=== PATIENT | male | born 1955 | race Caucasian/White ===

== ENCOUNTER 2022-04-07 14:10 | Emergency (ER) | payer SELFPAY ==
[2022-04-07 14:15] VITALS: BP 128/77; PULSE 89; RESP 16; TEMP 36.4; O2SAT 97
--- NOTE | 2022-04-07 14:32 | ED_ITS ---
HPI - General Adult General: Chief complaint: General Medical Stated complaint: out of meds Time Seen by Provider: 04/07/22 14:22 Source: patient Mode of arrival: ambulatory Limitations: no limitations History of Present Illness: 66-year-old male presents to the ER today for medication refills. Patient reports he is new to the area and does not have an appointment with a PCP until the . Patient reports he is out of his aripiprazole which he requires to maintain moods. Patient takes 2 mg at night. He reports he is been on this for years with no problems. He has no other concerns at this time. Review of Systems General: Reports: 10 or more systems reviewed and unremarkable except in HPI and below Physical Exam Const: COMMON NORMALS: no acute distress, average body habitus, patient oriented x3, no limitations, healthy appearing, alert and well nourished Resp: COMMON NORMALS: normal respiratory effort EFFORT & INSPECTION: Yes able to speak in complete sentences Cardio: COMMON NORMALS: regular rate and regular rhythm RATE: regular rate RHYTHM: regular rhythm Extremity: COMMON NORMALS: normal to inspection and full ROM Neuro: COMMON NORMALS: patient oriented x3 SENSORIUM/ORIENTATION: Yes alert Psych: COMMON NORMALS: mental status grossly normal, Normal thought process present and cooperative THOUGHT PROCESS: Normal thought process present Skin: COMMON NORMALS: no rashes or lesions noted GENERAL SKIN EXAM: no rashes or lesions noted Course ED course: 66-year-old male presents to the ER today for medication refills. Patient is new to the area and does not have an appointment with the PCP until the . He is on 2 mg of aripiprazole at night. He has been on this for years with no problems and does not want to go without a medicine for 2 weeks. Vital Signs: Vital signs: Vital Signs Temperature 97.5 F L 04/07/22 14:15 Pulse Rate 89 04/07/22 14:15 Respiratory Rate 16 04/07/22 14:15 Blood Pressure 128/77 04/07/22 14:15 Pulse Oximetry 97 04/07/22 14:15 Oxygen Delivery Me thod 04/07/22 14:15 MDM - General Adult Medical Decision Making 66-year-old male presents to the ER today for medication refills. Patient is new to the area and does not have an appointment with the PCP until the . He is on 2 mg of aripiprazole at night. He has been on this for years with no problems and does not want to go without a medicine for 2 weeks. We will refill patient's aripiprazole at this time. Keep appointment on the . Return to the ER with new or worsening symptoms. Patient verbalized understanding and is in agreement with the treatment plan. Critical Care Time Critical Care Time: Critical Care Time: No Discharge Plan Discharge Patient Disposition: Home Clinical Impression: Medication refill Condition: Stable Prescriptions: New aripiprazole 2 mg tablet 2 mg PO DAILY Qty: 21 0RF Discharge Orders: Discharge ED (Routine); Ordered 04/07/22 Ordered By: Nicole Alomnte Discharge Diet: Usual diet Discharge Activity: Resume usual activity Patient Instructions: Opioid Safety Activity Restrictions/Additional Instructions: Take medication as prescribed. Follow-up with PCP as scheduled appointment on the . Return to the ER with new or worsening symptoms. Coding Level of Care Code ED Toll Service Observer for Dao Allen
== END 2022-04-07 14:41 | disposition home or self-care (01) ==
PROVIDERS: Emergency Provider Physician Assistant
DX: Z76.0 Encounter for issue of repeat prescription (principal)
CPT/HCPCS: 99283

== ENCOUNTER → 2022-04-18 12:23 | Outpatient (BNVA) | payer SELFPAY | PROVIDERS: PCP Family Medicine; Visit Provider Family Medicine | DX: E11.9 Type 2 diabetes mellitus without complications (principal); I10 Essential (primary) hypertension; E78.00 Pure hypercholesterolemia, unspecified; I25.10 Atherosclerotic heart disease of native coronary artery without angina pectoris; F32.A Depression, unspecified; Z76.89 Persons encountering health services in other specified circumstances | CPT/HCPCS: 80053; 80061; 82043; 83036 ==

== ENCOUNTER → 2022-11-03 10:20 | Outpatient (BNVA) | payer OTHER, SELFPAY | PROVIDERS: PCP Family Medicine; Visit Provider Family Medicine | DX: E11.9 Type 2 diabetes mellitus without complications (principal); I10 Essential (primary) hypertension; E78.00 Pure hypercholesterolemia, unspecified; I25.10 Atherosclerotic heart disease of native coronary artery without angina pectoris | CPT/HCPCS: 80048; 80061; 83036 ==

== ENCOUNTER → 2023-02-12 09:51 | Outpatient (BNVA) | payer OTHER, SELFPAY | PROVIDERS: PCP Family Medicine; Visit Provider Family Medicine | DX: E11.9 Type 2 diabetes mellitus without complications (principal) | CPT/HCPCS: 80053; 80061; 83036 ==

== ENCOUNTER → 2023-05-16 12:28 | Outpatient (BNVA) | payer OTHER, SELFPAY | PROVIDERS: PCP Family Medicine; Visit Provider Family Medicine | DX: E11.9 Type 2 diabetes mellitus without complications (principal) | CPT/HCPCS: 80048; 83036 ==

== ENCOUNTER 2023-07-30 19:15 | Emergency (ER) | payer OTHER, SELFPAY ==
[2023-07-30 19:26] VITALS: BP 192/118; PULSE 127; RESP 17; TEMP 38.9; O2SAT 95; BMI 36.0
[2023-07-30 19:28] LABS: Glucose Point of Care 176 mg/dL (70-110)
--- NOTE | 2023-07-30 19:54 | CTR_ITS ---
PROCEDURE INFORMATION: Exam: CT Head Without Contrast Exam date and time: 07/30/2023 8:13 PM Age: 67 years old Clinical indication: Altered mental status/memory loss and fever; Patient HX: Fever with confusion; Additional info: Fever AMS TECHNIQUE: Imaging protocol: Computed tomography of the head without contrast. Radiation optimization: All CT scans at this facility use at least one of these dose optimization techniques: automated exposure control; mA and/or kV adjustment per patient size (includes targeted exams where dose is matched to clinical indication); or iterative reconstruction. REPORTING DATA: Count of CT and Cardiac NM exams in prior 12 months: This patient has received 0 known CTs and 0 known cardiac nuclear medicine studies in the 12 months prior to the current study. COMPARISON: No relevant prior studies available. RADIATION DOSE METRICS: Total DLP (mGy-cm): 1090.34 FINDINGS: Brain: No focal hemorrhage or midline shift is identified. The ventricles and parenchyma show mild atrophy and chronic bicerebral white matter ischemic change. Cerebral ventricles: No ventriculomegaly or evidence of hydrocephalus. Paranasal sinuses: No evidence of acute sinusitis. Mild diffuse sinus mucosal thickening. Mastoid air cells: Visualized mastoid air cells are well aerated. Bones/joints: No displaced skull fracture is noted. Soft tissues: Unremarkable. Vasculature: Diffuse vascular calcifications are present. CT/CT head wo con* [id number] IMPRESSION: 1. No acute intracranial abnormality. 2. Mild age-related changes.
--- NOTE | 2023-07-30 19:54 | XRR_ITS ---
PROCEDURE INFORMATION: Exam: XR Chest Exam date and time: 07/30/2023 8:07 PM Age: 67 years old Clinical indication: Fever; Additional info: Fever AMS TECHNIQUE: Imaging protocol: Radiologic exam of the chest. Views: 1 view. COMPARISON: No relevant prior studies available. FINDINGS: Lungs: Unremarkable. No consolidation. Pleural spaces: Unremarkable. No pleural effusion. No pneumothorax. Heart/Mediastinum: Unremarkable. No cardiomegaly. Bones/joints: Unremarkable. XR/XR chest 1V portable [id number] IMPRESSION: No acute findings.
[2023-07-30 20:16] VITALS: BP 147/100; PULSE 124; RESP 18; O2SAT 95
[2023-07-30 20:29] LABS: Basophils % 0.6 %; Eosinophils % 0.3 %; Lymphocytes # 0.7 10^3/uL (0.8-4.8); Lymphocytes % 9.9 %; Mean Corpuscular Hemoglobin 31.1 pg (27-33); Mean Corpuscular Volume 91.4 fl (82-101); Mean Platelet Volume 9.6 fL (7.4-10.4); Monocytes # 0.7 10^3/uL (0.2-0.9); Monocytes % 9.6 %; Neutrophils # 5.51 10^3/uL (1.8-7.7); Neutrophils % 79.3 %; Nucleated Red Blood Cells % 0 %; Platelet Count 183 10^3/cmm (157-399); Red Blood Count 5.14 10^6/uL (3.85-5.65); Red Cell Distribution Width 13.4 % (12.1-15.1); White Blood Count 6.95 10^3/uL (3.29-11.43)
[2023-07-30 20:35] LABS: INR 0.98 (0.8-1.2)
[2023-07-30 20:36] LABS: Influenza A by IFA negative (Negative); Influenza B by IFA negative (Negative); Partial Thromboplastin Time 29.7 SECONDS (23.9-36.7)
[2023-07-30] MEDS: cefTRIAXone 1,000 MG in sodium chloride 0.9% (plus) 50 ML 100 MG IV (20:38)
[2023-07-30 20:39] LABS: Lactic Sepsis W/Reflex 1.7 mmol/L (0.5-2.2)
[2023-07-30 20:40] LABS: Alanine Aminotransferase 15 U/L (0-41); Albumin Level 4.7 g/dL (3.5-5.2); Alkaline Phosphatase 81 U/L (40-130); Aspartate Amino Transferase 14 U/L (0-40); Blood Urea Nitrogen 15 mg/dL (8-23); C Reactive Protein 58.8 mg/L (0.0-4.9); Calcium 9.9 mg/dL (8.5-10.5); Carbon Dioxide 23 mmol/L (22-29); Chloride 100 mmol/L (98-107); Creatinine Clr Calc Pharmacy 67.8253; Globulin 2.8 g/dL (1.3-4.6); Glomerular Filtration Rate 60.2 mL/min (90-130); Glucose 157 mg/dL (65-115); Osmolality Calculated 286 mOsm/kg (285-295); Sodium 136 mmol/L (136-145); Total Bilirubin 0.4 mg/dL (0.15-1.2); Total Protein 7.5 g/dL (6.6-8.7)
[2023-07-30 20:43] LABS: SARS Covid-2 Antigen positive (Negative)
[2023-07-30 21:04] VITALS: BP 172/100; PULSE 112; RESP 16; O2SAT 95
[2023-07-30] MEDS: ketorolac 30 mg/mL INJ IVP (21:08)
[2023-07-30 21:23] VITALS: TEMP 37
[2023-07-30 22:02] LABS: Bilirubin Urine Neg (Negative); Blood Urine 2+ (Negative); Glucose Urine UA 4+ (Normal); Ketones Urine 1+ (Negative); Leukocyte Esterase Urine Negative (Negative); Nitrate Urine Negative (Negative); Protein Urine Neg (Negative); Urine Appearance Clear (CLEAR); Urine Color Light yellow (Yellow); Urobilinogen Urine Norm (Negative); pH Urine 5 (5-7)
[2023-07-30 22:03] LABS: Add Urine Culture? No; Add Urine Microscopic? YES; RBC Urine 0-4 /hpf (0-2); Squamous Epithelial Cell Urine 0-4 /hpf (0-5)
[2023-07-30 22:26] VITALS: BP 138/83; PULSE 100; RESP 16; O2SAT 95
--- NOTE | 2023-07-30 22:44 | ED_ITS ---
HPI - Altered Mental Status 2 General: Chief Complaint: Altered Mental Status Stated Complaint: cold symptoms, confusion Time Seen by Provider: 07/30/23 19:48 History of Present Illness: 67-year-old male patient with a history of fever today. He had some mild mental status changes. He does not appear well to his daughter. He has had a cough. No vomiting. He had some urinary dribbling as well. Review of Systems 2 Const: Reports: fever(s) and chills; Denies: body aches Eyes: Denies: change in vision Card: Denies: chest pain or palpitations Resp: Reports: non-productive cough; Denies: dyspnea, productive cough or wheezing GI: Reports: nausea; Denies: abdominal pain, vomiting, diarrhea or hematochezia : Reports: urinary dribbling and oliguria Skin/Breast: Denies: rash Neuro: Reports: dizziness and confusion; Denies: headache(s) or weakness in extremities PFSH ED 2 PFSH: Medical History (Updated 07/30/23 @ 22:46 by Usman Hoffmann DO) CAD (coronary artery disease) History of femur fracture left Depression Hypertension Diabetes Hypercholesteremia Surgical History History of left hip replacement Family History Mother CAD (coronary artery disease) Stroke Father CAD (coronary artery disease) Denies family history of Diabetes Dementia Cancer Social History Smoking and tobacco/nicotine status: never used tobacco/nicotine Alcohol intake: never Substance/Drug Use: never Lives independently: Yes Household members: children Marital status: / Number of children: 2 Current occupational status: retired Previous occupational history: construction Physical Exam 2 Const: COMMON NORMALS: no acute distress GENERAL APPEARANCE: cooperative, lethargic (Mildly) and ill appearing (Mildly); not frail appearing ORIENTATION/CONSCIOUSNESS: Yes lethargic (Mildly) HENMT: COMMON NORMALS: normocephalic, atraumatic and Normal external nose present HEAD & SCALP: normocephalic and atraumatic FACE & SINUS: normal facial exam and face symmetric NOSE: Normal external nose present Eye: COMMON NORMALS: Equal, round and reactive pupils present and EOMs intact bilaterally PUPIL: Yes Equal, round and reactive pupils present Neck/C-Spine: GENERAL: Yes trachea midline Chest: CHEST: Yes Symmetrical chest wall rise Resp: COMMON NORMALS: normal respiratory effort, No retractions, No use of accessory muscles and clear to auscultation bilaterally AUSCULTATION: clear to auscultation bilaterally Cardio: COMMON NORMALS: regular rhythm RATE: tachycardic RHYTHM: regular rhythm GI: COMMON NORMALS: Normal to inspection, nondistended, normoactive bowel sounds present Extremity: COMMON NORMALS: no pedal edema Neuro: MOLLY COMA SCALE: document GCS findings Molly coma scale eye opening: Spontaneous Molly coma scale verbal response: Orientated Lohn coma scale motor response: Obey commands Molly coma scale total score: 15 S ENSORIUM/ORIENTATION: Yes lethargic (Mildly) SPEECH: speech normal SENSORY EXAM: Yes extremities (intact) MOTOR EXAM: Normal motor muscle tone present throughout Psych: COMMON NORMALS: speech normal SPEECH: Yes normal speech Skin: COMMON NORMALS: no rashes or lesions noted GENERAL SKIN EXAM: no rashes or lesions noted Course 2 Vital Signs: Vital signs: Vital Signs Temperature 98.6 F 07/30/23 23:17 Pulse Rate 100 07/30/23 23:17 Respiratory Rate 16 07/30/23 23:17 Blood Pressure 138/83 07/30/23 23:17 Pulse Oximetry 95 07/30/23 23:17 Oxygen Delivery Me thod Nasal Cannula 07/30/23 21:04 Oxygen Flow Rate 2 07/30/23 21:04 MDM - Altered Mental Status Medical Decision Making This patient is COVID-positive with a CRP of 59. White blood cell count is normal. Liver enzymes are normal. He is maintaining a saturation of 90 to 92% on room air. He has received 2 L of fluid and Toradol with resolution of his fever. His heart rate is gone from 127 down to 100. He wishes to go home. His chest x-ray is negative. His head CT is negative. He will be prescribed Paxlovid for home. Temperature control. Return for worsening symptoms. Lab Data 07/30/23 20:10 07/30/23 20:10 Radiology Impressions Chest X-Ray 07/30/23 19:54 IMPRESSION: No acute findings. Head CT 07/30/23 19:54 IMPRESSION: 1. No acute intracranial abnormality. 2. Mild age-related changes. Laboratory Results WBC 6.95 10^3/uL (3.29-11.43) 07/30/23 20:10 RBC 5.14 10^6/uL (3.85-5.65) 07/30/23 20:10 Hgb 16.00 g/dL (11.27-16.99) 07/30/23 20:10 Hct 47.0 % (37-53) 07/30/23 20:10 MCV 91.4 fl (82-101) 07/30/23 20:10 MCH 31.1 pg (27-33) 07/30/23 20:10 MCHC 34.0 g/dL (30-55) 07/30/23 20:10 RDW 13.4 % (12.1-15.1) 07/30/23 20:10 Plt Count 183 10^3/cmm (157-399) 07/30/23 20:10 MPV 9.6 fL (7.4-10.4) 07/30/23 20:10 Neut % (Auto) 79.3 % 07/30/23 20:10 Lymph % (Auto) 9.9 % 07/30/23 20:10 [place] % (Auto) 9.6 % 07/30/23 20:10 Eos % (Auto) 0.3 % 07/30/23 20:10 Baso % (Auto) 0.6 % 07/30/23 20:10 Neut # (Auto) 5.51 10^3/uL (1.8-7.7) 07/30/23 20:10 Lymph # (Auto) 0.7 10^3/uL (0.8-4.8) L 07/30/23 20:10 [place] # (Auto) 0.7 10^3/uL (0.2-0.9) 07/30/23 20:10 Eos # (Auto) 0.0 10^3/uL (0.0-0.8) 07/30/23 20:10 Baso # (Auto) 0.0 10^3/uL (0.0-0.1) 07/30/23 20:10 Nucleated RBC % (auto) 0 % 07/30/23 20:10 Nucleated RBCs # 0.0 /100WBC 07/30/23 20:10 PT 13.20 SECONDS (12.1-14.9) 07/30/23 20:10 INR 0.98 (0.8-1.2) 07/30/23 20:10 APTT 29.7 SECONDS (23.9-36.7) 07/30/23 20:10 Sodium 136 mmol/L (136-145) 07/30/23 20:10 Potassium 4.0 mmol/L (3.5-5.1) 07/30/23 20:10 Chloride 100 mmol/L (98-107) 07/30/23 20:10 Carbon Dioxide 23 mmol/L (22-29) 07/30/23 20:10 Anion Gap 17.0 (5-19) 07/30/23 20:10 BUN 15 mg/dL (8-23) 07/30/23 20:10 Creatinine 1.2 mg/dL (0.7-1.2) 07/30/23 20:10 GFR Calculation 60.2 mL/min (90-130) L 07/30/23 20:10 Glucose 157 mg/dL (65-115) H 07/30/23 20:10 POC Glucose 176 mg/dL (70-110) H 07/30/23 19:25 Calculated Osmolality 286 mOsm/kg (285-295) 07/30/23 20:10 Lactic Acid 1.7 mmol/L (0.5-2.2) 07/30/23 20:10 Calcium 9.9 mg/dL (8.5-10.5) 07/30/23 20:10 Total Bilirubin 0.4 mg/dL (0.15-1.2) 07/30/23 20:10 AST 14 U/L (0-40) 07/30/23 20:10 ALT 15 U/L (0-41) 07/30/23 20:10 Alkaline Phosphatase 81 U/L (40-130) 07/30/23 20:10 C-Reactive Protein 58.8 mg/L (0.0-4.9) H 07/30/23 20:10 Total Protein 7.5 g/dL (6.6-8.7) 07/30/23 20:10 Albumin 4.7 g/dL (3.5-5.2) 07/30/23 20:10 Globulin 2.8 g/dL (1.3-4.6) 07/30/23 20:10 Urine Color Light yellow (Yellow) 07/30/23 21:18 Urine Appearance Clear (CLEAR) 07/30/23 21:18 Urine pH 5 (5-7) 07/30/23 21:18 Ur Specific [place] 1.010 (1.005-1.030) 07/30/23 21:18 Urine Protein Neg (Negative) 07/30/23 21:18 Urine Glucose (UA) 4+ (Normal) H 07/30/23 21:18 Urine Ketones 1+ (Negative) H 07/30/23 21:18 Urine Blood 2+ (Negative) H 07/30/23 21:18 Urine Nitrate Negative (Negative) 07/30/23 21:18 Urine Bilirubin Neg (Negative) 07/30/23 21:18 Urine Urobilinogen Norm mg/dL (Negative) 07/30/23 21:18 Ur Leukocyte Esterase Negative (Negative) 07/30/23 21:18 Urine RBC 0-4 /hpf (0-2) H 07/30/23 21:18 Urine WBC None /hpf (0-5) 07/30/23 21:18 Ur Squamous Epith Cells 0-4 /hpf (0-5) H 07/30/23 21:18 Amorphous Sediment Not Reportable 07/30/23 21:18 Urine Bacteria None /hpf (NONE) 07/30/23 21:18 Influenza Type A Ag negative (Negative) 07/30/23 20:10 Influenza Type B Ag negative (Negative) 07/30/23 20:10 SARS-CoV-2 Ag (Rapid) positive (Negative) H 07/30/23 20:10 All radiology interpretation(s) finalized by discharge Discharge Plan Discharge Patient Disposition: Home Clinical Impression: COVID-19 Condition: Stable Prescriptions: New Paxlovid 300 mg (150 mg x 2)-100 mg tablets,dose pack See Rx Instructions .ROUTE .COMPLEX Qty: 30 0RF Rx Instructions: take TWO 150 mg tablets of nirmatrelvir with ONE 100 mg tablet of ritonavir twice daily for 5 days dexamethasone 6 mg tablet 6 mg PO DAILY Qty: 5 0RF No Action aspirin 81 mg tablet,delayed release (DR/EC) 81 mg PO DAILY aripiprazole 2 mg tablet 2 mg PO DAILY Qty: 90 1RF clopidogrel 75 mg tablet 75 mg PO DAILY 90 Days Qty: 90 1RF metoprolol tartrate 25 mg tablet 37.5 mg PO BID 90 Days Qty: 270 1RF rosuvastatin 20 mg tablet 20 mg PO DAILY 90 Days Qty: 90 1RF venlafaxine 37.5 mg tablet 37.5 mg PO DAILY 90 Days Qty: 90 1RF Jardiance 25 mg tablet 25 mg PO DAILY Qty: 90 1RF perindopril erbumine 2 mg tablet 2 mg PO DAILY 90 Days Qty: 90 1RF metformin 500 mg tablet See Rx Instructions .ROUTE .COMPLEX Qty: 360 1RF Dose Instruction: Take 2 tablets by mouth twice daily Rx Instructions: Take 2 tablets by mouth twice daily glipizide 5 mg tablet See Rx Instructions .ROUTE .COMPLEX Qty: 90 1RF Dose Instruction: Take 1 tablet by mouth once daily Rx Instructions: Take 1 tablet by mouth once daily (DME) FreeStyle Dylan 2 [place] Misc See Rx Instructions .ROUTE .COMPLEX Qty: 1 0RF Dose Instruction: USE DIRECTED Rx Instructions: USE DIRECTED (DME) FreeStyle Dylan 2 Sensor Kit See Rx Instructions .ROUTE .COMPLEX Qty: 1 0RF Dose Instruction: USE DIRECTED Rx Instructions: USE DIRECTED sildenafil 100 mg tablet See Rx Instructions .ROUTE .COMPLEX Qty: 20 0RF Dose Instruction: TAKE 1 TABLET BY MOUTH DAILY NEEDED FOR SEXUAL ACTIVITY; TAKE 1 TABLET 30 MINUTES TO 4 HOURS BEFORE ACTIVITY Rx Instructions: TAKE 1 TABLET BY MOUTH DAILY NEEDED FOR SEXUAL ACTIVITY; TAKE 1 TABLET 30 MINUTES TO 4 HOURS BEFORE ACTIVITY Discharge Orders: Discharge ED (Routine); Ordered 07/30/23 Ordered By: Usman Hoffmann Referrals: Vero Bustos MD [Primary Care Provider] - 4-7 days Patient Instructions: Altered Mental Status (ED), COVID-19 (Coronavirus Disease 2019) (ED), Opioid Safety, Pain Management Activity Restrictions/Additional Instructions: Monitor your temperature closely, treat any fever above 100 with Tylenol or ibuprofen. Stay hydrated. Take antivirals as directed. Return for worsening mental status despite treatment, worsening shortness of breath, any other concerning symptoms. See your doctor next week. Coding Level of Care Code ED Front End Software Engineer for Dao Allen
[2023-07-30 23:17] VITALS: BP 138/83; PULSE 100; RESP 16; TEMP 37; O2SAT 95
== END 2023-07-30 23:18 | disposition home or self-care (01) ==
PROVIDERS: Emergency Provider Emergency Medicine; PCP Family Medicine
DX: U07.1 COVID-19 (principal); Z79.82 Long term (current) use of aspirin; Z79.02 Long term (current) use of antithrombotics/antiplatelets; Z79.84 Long term (current) use of oral hypoglycemic drugs; I25.10 Atherosclerotic heart disease of native coronary artery without angina pectoris; I10 Essential (primary) hypertension; E11.9 Type 2 diabetes mellitus without complications
CPT/HCPCS: 36416; 70450; 71045; 80053; 81001; 82962; 83605; 85025; 85610; 85730; 86140; 87040; 87426; 87804; 96365; 96375; 99285; J0696; J1885; J7030

== ENCOUNTER → 2023-10-18 11:22 | Outpatient (BNVA) | payer OTHER, SELFPAY | PROVIDERS: PCP Family Medicine; Visit Provider Family Medicine | DX: E11.9 Type 2 diabetes mellitus without complications (principal) | CPT/HCPCS: 80053; 80061; 82607; 83036 ==

== ENCOUNTER → 2024-05-05 10:34 | Outpatient (BNVA) | payer OTHER, SELFPAY | PROVIDERS: PCP Family Medicine; Visit Provider Family Medicine | DX: E11.9 Type 2 diabetes mellitus without complications (principal) | CPT/HCPCS: 80048; 80061; 83036 ==

== ENCOUNTER → 2024-11-11 14:07 | Outpatient (BNVA) | payer OTHER, SELFPAY | PROVIDERS: PCP Family Medicine; Visit Provider Family Medicine | DX: I10 Essential (primary) hypertension (principal); I25.10 Atherosclerotic heart disease of native coronary artery without angina pectoris; E78.00 Pure hypercholesterolemia, unspecified; E11.9 Type 2 diabetes mellitus without complications | CPT/HCPCS: 80053; 80061; 83036 ==

== ENCOUNTER → 2025-06-02 09:56 | Outpatient (BNVA) | payer OTHER, SELFPAY | PROVIDERS: PCP Family Medicine; Visit Provider Family Medicine | DX: E11.9 Type 2 diabetes mellitus without complications (principal) | CPT/HCPCS: 80048; 82607; 83036 ==